=== PATIENT | male | born 2000 | race Two or more races ===

== ENCOUNTER 2023-02-06 11:59 | Emergency (ER) | payer MEDICAID, OTHER ==
[~2023-02-06] VITALS: Ht 175.3 cm; Wt 88.2 kg
[2023-02-06 14:08] VITALS: BP 108/60
[2023-02-06] MEDS ORDERED: IBUP-1456 PO (14:48)
== END 2023-02-06 14:57 | disposition home or self-care (01) ==
LOC: ER 11:59
DX: S29.012A Strain of muscle and tendon of back wall of thorax, initial encounter (principal); V43.52XA Car driver injured in collision with other type car in traffic accident, initial encounter; Y93.89 Activity, other specified; Y92.89 Other specified places as the place of occurrence of the external cause; Y99.8 Other external cause status
CPT/HCPCS: 72070